=== PATIENT | male | born 1955 | race Caucasian/White ===

== ENCOUNTER → 2020-02-09 11:31 | Outpatient (BNVA) | payer OTHER, SELFPAY | PROVIDERS: PCP Internal Medicine; Visit Provider Internal Medicine | DX: J44.9 Chronic obstructive pulmonary disease, unspecified (principal); D75.1 Secondary polycythemia; F17.210 Nicotine dependence, cigarettes, uncomplicated | CPT/HCPCS: 99212 ==

== ENCOUNTER 2020-02-23 10:18 | Outpatient (REF) | payer OTHER, SELFPAY ==
[2020-02-23 11:26] LABS: MANUAL DIFF FLAG NO
[2020-02-23 11:39] LABS: Basophils Absolute Auto 0.1 X10*3/uL (0.0-0.2); Basophils Percent Auto 0.8 % (0-2); Eosinophils Absolute Auto 0.2 X10*3/uL (0.0-0.4); Eosinophils Percent Auto 2.3 % (0-4); Hematocrit 48.9 % (42-52); Hemoglobin 16.4 g/dl (14.0-18.0); Imm Gran Abs Auto 0.02 X10*3/uL (0.00-0.03); Imm Gran Pct Auto 0.3 % (0.0-0.4); Lymphocytes Absolute Auto 1.9 X10*3/uL (1.2-4.9); Lymphocytes Percent Auto 26.2 % (20-40); Mean Corpuscular HGB Conc 33.5 g/dl (31.0-36.0); Mean Corpuscular Hemoglobin 29.4 pg (27.0-33.0); Mean Corpuscular Volume 87.8 fL (80-98); Mean Platelet Volume 9.3 fL (9.4-12.4); Monocytes Absolute Auto 0.6 X10*3/uL (0.1-1.2); Monocytes Percent Auto 7.9 % (2-11); Neutrophils Absolute Auto 4.5 X10*3/uL (2.0-8.3); Neutrophils Percent Auto 62.5 % (45-73); Platelet Count 270 X10*3/uL (160-400); Red Blood Count 5.57 X10*6/uL (4.60-5.80); Red Cell Distribution Width 13.4 % (11.0-16.0); White Blood Count 7.2 X10*3/uL (4.8-10.8)
[2020-02-23 11:47] LABS: Glucose Urine UA 100 MG/DL (NEG); Leukocyte Esterase Urine NEG (NEG); Nitrite Urine NEG (NEG); PH 5.5 (5.0-8.0); Specific Gravity - Urine >= 1.030 (1.005-1.025); Urine Blood NEG (NEG); Urine Ketones NEG (NEG); Urine Protein NEG (NEG-TRACE)
[2020-02-23 11:54] LABS: Appearance Urine HAZY; Color Urine YELLOW
[2020-02-23 12:04] LABS: Estimated Average Glucose 140 mg/dL; Hemoglobin A1c % 6.5 %
[2020-02-23 12:05] LABS: Alanine Aminotransferase 28 U/L (0-40); Albumin Level 4.2 g/dL (3.5-5.0); Alkaline Phosphatase 63 U/L (39-117); Anion Gap 14 (12-20); Aspartate Amino Transferase 22 U/L (5-37); Bilirubin Total 0.6 mg/dL (0.0-1.0); Blood Urea Nitrogen 12 mg/dL (9-16); Calcium 9.3 mg/dL (8.4-10.2); Carbon Dioxide 27 mmol/L (22-29); Chloride 102 mmol/L (96-108); Cholesterol 223 mg/dL; Estimated Glomerular Filt Rate > 60; Glucose Fasting 154 mg/dL (60-99); HDL Cholesterol 49 mg/dL; LDL Cholesterol Calculated 146 mg/dl; Potassium 4.4 mmol/l (3.3-5.1); Sodium 139 mmol/L (135-145); Triglycerides 141 mg/dL
[2020-02-23 12:11] LABS: Prostate Specific Antigen 2.38 ng/mL (<0.05-4.0)
[2020-02-23 12:31] LABS: Creatinine Urine 257.42 mg/dL; Microalbum/Creatinine Ratio Ur 17.8 ug/mg cr
== END 2020-02-23 10:19 | disposition home or self-care (01) ==
LOC: HO.HMGCLDS 10:18
PROVIDERS: PCP Internal Medicine; Visit Provider Internal Medicine
DX: R73.03 Prediabetes (principal); E78.5 Hyperlipidemia, unspecified; J44.9 Chronic obstructive pulmonary disease, unspecified
CPT/HCPCS: 36415; 80053; 80061; 81003; 82043; 83036; 84153; 85025

== ENCOUNTER 2020-05-20 12:05 | Outpatient (REF) | payer OTHER, SELFPAY ==
[2020-05-20 14:02] LABS: Estimated Average Glucose 143 mg/dL; Hemoglobin A1c % 6.6 %
[2020-05-20 14:23] LABS: Anion Gap 17 (12-20); Blood Urea Nitrogen 13 mg/dL (9-16); Calcium 9.4 mg/dL (8.4-10.2); Carbon Dioxide 25 mmol/L (22-29); Chloride 100 mmol/L (96-108); Estimated Glomerular Filt Rate > 60; Glucose Fasting 177 mg/dL (60-99); Potassium 4.2 mmol/L (3.3-5.1); Sodium 138 mmol/L (135-145)
== END 2020-05-20 12:06 | disposition home or self-care (01) ==
LOC: HO.10HDL 12:05
PROVIDERS: Visit Provider Internal Medicine
DX: E11.9 Type 2 diabetes mellitus without complications (principal); K21.9 Gastro-esophageal reflux disease without esophagitis; E78.00 Pure hypercholesterolemia, unspecified; J44.9 Chronic obstructive pulmonary disease, unspecified; F17.210 Nicotine dependence, cigarettes, uncomplicated
CPT/HCPCS: 36415; 80048; 83036

== ENCOUNTER 2020-05-20 12:28 | Outpatient (REF) | payer OTHER, SELFPAY ==
--- NOTE | ~2020-05-20 | CT_ITS ---
EXAMINATION: CT CHEST SCREENING CLINICAL INFORMATION: Nicotine dependence. COMPARISON: 04/15/2019 and 04/12/2018. TECHNIQUE: Multidetector volumetric CT imaging of the chest is performed without contrast using low dose technique. Additional 2D coronal and sagittal reformatted images and axial 3D maximum intensity projection (MIP) images are generated on the CT workstation. This CT examination was performed using dose optimization techniques as appropriate, variously including the following: *Automated exposure control *Adjustment of mA and/or kV according to patient size (this includes techniques or standardized protocols for targeted exams where dose is matched to indication/reason for exam; i.e. extremities or head) *Use of iterative reconstruction technique DLP: 56 mGy-cm FINDINGS: LUNGS: There are changes of centrilobular emphysema present bilaterally. Central airways are patent. There is some bronchial wall thickening present bilaterally without significant bronchiectasis. No confluent parenchymal disease is identified. There are scattered sub-4 mm densities present. There is a region of tree-in-bud disease within the right lower lobe without definite mucous plugging appreciated. There is mild apical pleural-parenchymal scarring bilaterally. MEDIASTINUM: Visualized thyroid gland appears unremarkable. Heart normal size. Coronary artery calcification present. No pericardial effusion. No thoracic aortic aneurysm. Nonocclusive aortic arch calcified plaque. No mediastinal or hilar lymphadenopathy. PLEURA: There is no pleural effusion. No pleural mass or thickening. AXILLA: No lymphadenopathy. UPPER ABDOMEN: Unremarkable. There is calcification about the right renal hilum but which is most likely vascular in nature and not within the collecting system. No adrenal gland lesion. OSSEOUS STRUCTURES: No destructive bony lesion identified. CT/CT lung screening IMPRESSION: Changes of centrilobular emphysema. Bronchial wall thickening with mild bronchiectasis which may be related to respiratory bronchiolitis. No suspicious lung nodules. Single focus of disease with appearance of tree-in-bud configuration which may be related to mucous plugging/end bronchial disease within the right lower lobe. ASSESSMENT: Lung-RADS category 2: Benign. RECOMMENDATION: Routine annual low-dose CT screening in 12 months.
== END 2020-05-20 12:29 | disposition home or self-care (01) ==
LOC: HO.CT 12:28
PROVIDERS: PCP Internal Medicine; Visit Provider Physician Assistant Medical
DX: Z12.2 Encounter for screening for malignant neoplasm of respiratory organs (principal); F17.210 Nicotine dependence, cigarettes, uncomplicated
CPT/HCPCS: 71271

== ENCOUNTER → 2020-06-08 11:45 | Outpatient (BNVA) | payer OTHER, SELFPAY | PROVIDERS: PCP Internal Medicine; Visit Provider Internal Medicine | DX: J44.9 Chronic obstructive pulmonary disease, unspecified (principal); D75.1 Secondary polycythemia; Z87.891 Personal history of nicotine dependence; Z79.51 Long term (current) use of inhaled steroids | CPT/HCPCS: 99212 ==

== ENCOUNTER 2020-12-07 11:17 | Outpatient (REF) | payer OTHER, SELFPAY ==
[2020-12-07 13:57] LABS: MANUAL DIFF FLAG NO
[2020-12-07 14:11] LABS: Basophils Percent Auto 0.6 % (0-2); Eosinophils Absolute Auto 0.1 X10*3/uL (0.0-0.4); Hematocrit 46.8 % (42-52); Hemoglobin 16.1 g/dl (14.0-18.0); Imm Gran Abs Auto 0.03 X10*3/uL (0.00-0.03); Imm Gran Pct Auto 0.4 % (0.0-0.4); Lymphocytes Absolute Auto 1.6 X10*3/uL (1.2-4.9); Lymphocytes Percent Auto 22.6 % (20-40); Mean Corpuscular HGB Conc 34.4 g/dl (31.0-36.0); Mean Corpuscular Hemoglobin 30.1 pg (27.0-33.0); Mean Corpuscular Volume 87.6 fL (80-98); Mean Platelet Volume 9.7 fL (9.4-12.4); Monocytes Absolute Auto 0.5 X10*3/uL (0.1-1.2); Monocytes Percent Auto 6.9 % (2-11); Neutrophils Absolute Auto 4.6 X10*3/uL (2.0-8.3); Neutrophils Percent Auto 67.5 % (45-73); Platelet Count 242 X10*3/uL (160-400); Red Blood Count 5.34 X10*6/uL (4.60-5.80); Red Cell Distribution Width 13.5 % (11.0-16.0); White Blood Count 6.9 X10*3/uL (4.8-10.8)
[2020-12-07 14:13] LABS: Estimated Average Glucose 143 mg/dL; Hemoglobin A1c % 6.6 %
[2020-12-07 14:18] LABS: Alanine Aminotransferase 31 U/L (0-40); Albumin Level 4.1 g/dL (3.5-5.0); Alkaline Phosphatase 66 U/L (39-117); Anion Gap 14 (12-20); Aspartate Amino Transferase 27 U/L (5-37); Bilirubin Total 0.8 mg/dL (0.0-1.0); Blood Urea Nitrogen 13 mg/dL (9-16); Calcium 9.1 mg/dL (8.4-10.2); Carbon Dioxide 25 mmol/L (22-29); Chloride 103 mmol/L (96-108); Cholesterol 218 mg/dL; Estimated Glomerular Filt Rate > 60; Glucose Fasting 172 mg/dL (60-99); HDL Cholesterol 43 mg/dL; LDL Cholesterol Calculated 137 mg/dl; Potassium 3.7 mmol/L (3.3-5.1); Sodium 138 mmol/L (135-145); Total Protein 6.6 g/dL (6.5-8.0); Triglycerides 192 mg/dL
[2020-12-07 14:34] LABS: Creatinine Urine 249.29 mg/dL; Microalbum/Creatinine Ratio Ur 10.4 ug/mg cr
== END 2020-12-07 11:18 | disposition home or self-care (01) ==
LOC: HO.10HDL 11:17
PROVIDERS: Visit Provider Internal Medicine
DX: J44.9 Chronic obstructive pulmonary disease, unspecified (principal); D75.1 Secondary polycythemia; F17.210 Nicotine dependence, cigarettes, uncomplicated; Z79.899 Other long term (current) drug therapy; E11.9 Type 2 diabetes mellitus without complications; K21.9 Gastro-esophageal reflux disease without esophagitis; Z86.73 Personal history of transient ischemic attack (TIA), and cerebral infarction without residual deficits
CPT/HCPCS: 36415; 80053; 80061; 82043; 83036; 85025; 99212

== ENCOUNTER 2021-02-11 14:30 | Outpatient (REF) | payer OTHER, SELFPAY ==
[2021-02-11 16:40] LABS: Anion Gap 14 (12-20); Blood Urea Nitrogen 11 mg/dL (9-16); Calcium 9.2 mg/dL (8.4-10.2); Carbon Dioxide 27 mmol/L (22-29); Chloride 100 mmol/L (96-108); Estimated Glomerular Filt Rate > 60; Glucose Random 140 mg/dL (60-115); Potassium 4.2 mmol/L (3.3-5.1); Sodium 137 mmol/L (135-145)
[2021-02-11 16:44] LABS: Estimated Average Glucose 143 mg/dL; Hemoglobin A1c % 6.6 %
== END 2021-02-11 14:31 | disposition home or self-care (01) ==
LOC: HO.HMGCLDS 14:30
PROVIDERS: Visit Provider Internal Medicine
DX: I10 Essential (primary) hypertension (principal); E11.9 Type 2 diabetes mellitus without complications
CPT/HCPCS: 36415; 80048; 83036

== ENCOUNTER → 2021-06-07 11:07 | Outpatient (BNVA) | payer OTHER, SELFPAY | PROVIDERS: PCP Internal Medicine; Visit Provider Internal Medicine | DX: J44.9 Chronic obstructive pulmonary disease, unspecified (principal); D75.1 Secondary polycythemia; F17.210 Nicotine dependence, cigarettes, uncomplicated | CPT/HCPCS: 99212 ==

== ENCOUNTER 2021-12-21 15:23 | Outpatient (REF) | payer OTHER, SELFPAY ==
[2021-12-21 16:19] LABS: Creatinine Urine 272.01 mg/dL; Microalbum/Creatinine Ratio Ur 12.4 ug/mg cr
[2021-12-21 16:21] LABS: Estimated Average Glucose 154 mg/dL
[2021-12-21 16:24] LABS: Alanine Aminotransferase 42 U/L (0-40); Albumin Level 4.5 g/dL (3.5-5.0); Alkaline Phosphatase 67 U/L (39-117); Anion Gap 17 (12-20); Aspartate Amino Transferase 26 U/L (5-37); Bilirubin Total 0.6 mg/dL (0.0-1.0); Blood Urea Nitrogen 15 mg/dL (9-16); Calcium 9.5 mg/dL (8.4-10.2); Carbon Dioxide 25 mmol/L (22-29); Chloride 104 mmol/L (96-108); Estimated Glomerular Filt Rate > 60; Glucose Random 149 mg/dL (60-115); Potassium 3.5 mmol/L (3.3-5.1); Sodium 142 mmol/L (135-145); Total Protein 7.3 g/dL (6.5-8.0)
[2021-12-21 16:44] LABS: Free T4 (Free Thyroxine) 1.28 ng/dL (0.71-1.85); Thyroid Stimulating Hormone 0.95 uIU/mL (0.32-4.0)
[2021-12-21 16:45] LABS: Vitamin B12 362 pg/mL (200-900)
== END 2021-12-21 15:24 | disposition home or self-care (01) ==
LOC: HO.LAB 15:23
PROVIDERS: PCP Internal Medicine; Visit Provider Internal Medicine
DX: R73.03 Prediabetes (principal); J44.9 Chronic obstructive pulmonary disease, unspecified; K21.9 Gastro-esophageal reflux disease without esophagitis; R53.83 Other fatigue; D75.1 Secondary polycythemia; F17.200 Nicotine dependence, unspecified, uncomplicated; Z71.6 Tobacco abuse counseling
CPT/HCPCS: 36415; 80053; 82043; 82607; 83036; 84439; 84443; 99212

== ENCOUNTER 2022-03-06 15:05 | Outpatient (REF) | payer OTHER, SELFPAY ==
[2022-03-06 16:48] LABS: Influenza A PCR NEGATIVE (Negative); Influenza B PCR NEGATIVE (Negative); Resp Syncy Virus RNA Qual PCR NEGATIVE (Negative); SARS COV2 PCR INHOUSE NEGATIVE (Negative)
== END 2022-03-06 15:06 | disposition home or self-care (01) ==
LOC: HO.LNP 15:05
PROVIDERS: Visit Provider Internal Medicine
DX: Z12.5 Encounter for screening for malignant neoplasm of prostate (principal); R05.9 Cough, unspecified; R51.9 Headache, unspecified
CPT/HCPCS: 0241U

== ENCOUNTER 2022-03-07 16:20 | Outpatient (REF) | payer OTHER, SELFPAY ==
--- NOTE | ~2022-03-07 | XR_ITS ---
EXAMINATION: XR CHEST CLINICAL INFORMATION: Chronic obstructive pulmonary disease. COMPARISON: Chest CT from 05/20/2020 TECHNIQUE: 2 views of the chest were obtained. FINDINGS: Lungs are mildly hyperexpanded and bronchial pillai chronically thickened in this patient with chronic obstructive pulmonary disease. No acute findings compared to 05/20/2020. No evidence of airspace disease, mass or pleural effusion. Cardiac silhouette has normal size and contour. The visualized bones are intact. XR/XR chest 2V IMPRESSION: Chronic lung disease. No new cardiopulmonary abnormalities compared to 05/20/2020.
== END 2022-03-07 16:21 | disposition home or self-care (01) ==
LOC: HO.XRAY 16:20
PROVIDERS: PCP Internal Medicine; Visit Provider Internal Medicine
DX: J44.9 Chronic obstructive pulmonary disease, unspecified (principal); R05.9 Cough, unspecified
CPT/HCPCS: 71046

== ENCOUNTER 2023-01-11 11:26 | Outpatient (REF) | payer MEDICARE, MEDICAID, SELFPAY ==
[2023-01-11 13:22] LABS: Appearance Urine Cloudy; Color Urine Dark Yellow; Glucose Urine UA 500 mg/dL (Negative); Leukocyte Esterase Urine Small (1+) (Negative); Nitrite Urine Negative (Negative); PH 5.5 (5.0-9.0); UMIC TRIGGER UA YES; Urine Blood Negative (Negative); Urine Ketones Trace mg/dL (Negative); Urine Protein 30 (1+) mg/dL (Neg-Trace)
[2023-01-11 13:23] LABS: MANUAL DIFF FLAG NO
[2023-01-11 13:32] LABS: Bacteria Urine None Seen (None Seen); Hyaline Casts Urine >20 /LPF (0-2)
[2023-01-11 13:34] LABS: Basophils Absolute Auto 0.1 X10*3/uL (0.0-0.2); Eosinophils Absolute Auto 0.1 X10*3/uL (0.0-0.4); Eosinophils Percent Auto 1.6 % (0-4); Hematocrit 49.7 % (42.0-52.0); Hemoglobin 16.8 g/dl (14.0-18.0); Imm Gran Abs Auto 0.02 X10*3/uL (0.00-0.03); Imm Gran Pct Auto 0.3 % (0.0-0.4); Lymphocytes Absolute Auto 1.7 X10*3/uL (1.2-4.9); Lymphocytes Percent Auto 20.9 % (20-40); Mean Corpuscular HGB Conc 33.8 g/dl (31.0-36.0); Mean Corpuscular Hemoglobin 29.6 pg (27.0-33.0); Mean Corpuscular Volume 87.5 fL (80.0-98.0); Mean Platelet Volume 9.8 fL (9.4-12.4); Monocytes Absolute Auto 0.6 X10*3/uL (0.1-1.2); Neutrophils Absolute Auto 5.5 x10*3/uL (2.0-8.3); Neutrophils Percent Auto 69.2 % (45-73); Platelet Count 317 X10*3/uL (160-400); Red Blood Count 5.68 X10*6/uL (4.60-5.80); Red Cell Distribution Width 13.2 % (11.0-16.0)
[2023-01-11 14:11] LABS: Prostate Specific Antigen Scr 4.11 ng/mL (<0.05-4.0)
[2023-01-11 14:26] LABS: Alanine Aminotransferase 36 U/L (0-40); Albumin Level 4.3 g/dL (3.5-5.0); Alkaline Phosphatase 66 U/L (39-117); Anion Gap 14 (12-20); Aspartate Amino Transferase 29 U/L (5-37); Bilirubin Total 0.6 mg/dL (0.0-1.0); Blood Urea Nitrogen 15 mg/dL (9-16); Calcium 10.1 mg/dL (8.4-10.2); Carbon Dioxide 25 mmol/L (22-29); Chloride 100 mmol/L (96-108); Cholesterol 216 mg/dL (<200); Estimated Glomerular Filt Rate > 60; Glucose Fasting 193 mg/dL (60-99); HDL Cholesterol 43 mg/dL (>40); LDL Cholesterol Calculated 142 mg/dL (<100); Potassium 4.3 mmol/L (3.3-5.1); Sodium 135 mmol/L (135-145); Total Protein 7.6 g/dL (6.5-8.0); Triglycerides 159 mg/dL (<150)
[2023-01-11 14:34] LABS: Estimated Average Glucose 163 mg/dL; Hemoglobin A1c % 7.3 % (<6.0)
[2023-01-11 14:58] LABS: Creatinine Urine 320.94 mg/dL; Microalbum/Creatinine Ratio Ur 33.9 ug/mg cr (<30)
== END 2023-01-11 11:27 | disposition home or self-care (01) ==
LOC: HO.HMGCLDS 11:26
PROVIDERS: PCP Internal Medicine; Visit Provider Internal Medicine
DX: E11.9 Type 2 diabetes mellitus without complications (principal); K21.9 Gastro-esophageal reflux disease without esophagitis; J44.9 Chronic obstructive pulmonary disease, unspecified; E78.00 Pure hypercholesterolemia, unspecified; Z86.73 Personal history of transient ischemic attack (TIA), and cerebral infarction without residual deficits; Z12.5 Encounter for screening for malignant neoplasm of prostate
CPT/HCPCS: 36415; 80053; 80061; 81001; 82043; 82570; 83036; 84153; 85025

== ENCOUNTER 2023-06-05 12:18 | Outpatient (REF) | payer MEDICARE, MEDICAID, SELFPAY ==
[2023-06-05 14:06] LABS: Estimated Average Glucose 169 mg/dL; Hemoglobin A1c % 7.5 % (<6.0)
[2023-06-05 14:17] LABS: Anion Gap 16 (12-20); Blood Urea Nitrogen 18 mg/dL (9-16); Calcium 9.4 mg/dL (8.4-10.2); Carbon Dioxide 26 mmol/L (22-29); Chloride 101 mmol/L (96-108); Estimated Glomerular Filt Rate > 60; Glucose Random 241 mg/dL (60-115); Potassium 3.5 mmol/L (3.3-5.1); Sodium 139 mmol/L (135-145)
[2023-06-05 17:32] LABS: Creatinine Urine 148.72 mg/dL
== END 2023-06-05 12:19 | disposition home or self-care (01) ==
LOC: HO.HMGCLDS 12:18
PROVIDERS: PCP Internal Medicine; Visit Provider Internal Medicine
DX: E11.9 Type 2 diabetes mellitus without complications (principal); K21.9 Gastro-esophageal reflux disease without esophagitis; Z86.73 Personal history of transient ischemic attack (TIA), and cerebral infarction without residual deficits
CPT/HCPCS: 36415; 80048; 82043; 82570; 83036

== ENCOUNTER 2023-07-20 12:14 | Outpatient (REF) | payer MEDICARE, MEDICAID, SELFPAY ==
--- NOTE | ~2023-07-20 | XR_ITS ---
EXAMINATION: XR CHEST CLINICAL INFORMATION: Cough COMPARISON: 03/07/2022 TECHNIQUE: 2 views of the chest were obtained. FINDINGS: The lungs are hyperinflated and the bronchial pillai are chronically thickened. No focal consolidation, interstitial pulmonary edema or pneumothorax. No pleural effusion. No significant abnormality is noted involving the heart, mediastinum, bony thorax or soft tissues. XR/XR chest 2V IMPRESSION: No acute cardiopulmonary disease.
== END 2023-07-20 12:15 | disposition home or self-care (01) ==
LOC: HO.XRAY 12:14
PROVIDERS: PCP Internal Medicine; Visit Provider Internal Medicine
DX: R05.9 Cough, unspecified (principal); J44.9 Chronic obstructive pulmonary disease, unspecified
CPT/HCPCS: 71046

== ENCOUNTER 2023-11-05 13:40 | Outpatient (REF) | payer MEDICARE, SELFPAY ==
[2023-11-05 16:17] LABS: MANUAL DIFF FLAG NO
[2023-11-05 16:25] LABS: Basophils Absolute Auto 0.1 X10*3/uL (0.0-0.2); Basophils Percent Auto 0.7 % (0-2); Eosinophils Absolute Auto 0.1 X10*3/uL (0.0-0.4); Eosinophils Percent Auto 1.2 % (0-4); Hematocrit 50.4 % (42.0-52.0); Hemoglobin 17.1 g/dl (14.0-18.0); Imm Gran Abs Auto 0.04 X10*3/uL (0.00-0.03); Imm Gran Pct Auto 0.4 % (0.0-0.4); Lymphocytes Absolute Auto 1.9 X10*3/uL (1.2-4.9); Mean Corpuscular HGB Conc 33.9 g/dl (31.0-36.0); Mean Corpuscular Hemoglobin 29.8 pg (27.0-33.0); Mean Platelet Volume 9.7 fL (9.4-12.4); Monocytes Absolute Auto 0.8 X10*3/uL (0.1-1.2); Monocytes Percent Auto 7.6 % (2-11); Neutrophils Absolute Auto 7.6 x10*3/uL (2.0-8.3); Neutrophils Percent Auto 72.1 % (45-73); Platelet Count 347 X10*3/uL (160-400); Red Blood Count 5.73 X10*6/uL (4.60-5.80); White Blood Count 10.6 X10*3/uL (4.8-10.8)
[2023-11-05 16:56] LABS: Anion Gap 17 (12-20); Blood Urea Nitrogen 18 mg/dL (9-16); Calcium 10.4 mg/dL (8.4-10.2); Carbon Dioxide 26 mmol/L (22-29); Chloride 101 mmol/L (96-108); Estimated Glomerular Filt Rate > 60; Glucose Random 158 mg/dL (60-115); Potassium 3.8 mmol/L (3.3-5.1); Sodium 140 mmol/L (135-145)
[2023-11-05 16:59] LABS: Estimated Average Glucose 137 mg/dL; Hemoglobin A1c % 6.4 % (<6.0)
[2023-11-05 17:20] LABS: PSA,Total (Free>4and<10) 4.79 ng/mL (0.00-4.00); Prostate Specific Antigen 5.03 ng/mL (<0.05-4.0)
[2023-11-06 10:58] LABS: Free Prostate Spec Ag 0.4 ng/mL; Percent Free Prostate Spec Ag 8 % (calc) (>25)
== END 2023-11-05 13:41 | disposition home or self-care (01) ==
LOC: HO.HMGCLDS 13:40
PROVIDERS: PCP Internal Medicine; Visit Provider Internal Medicine
DX: E11.9 Type 2 diabetes mellitus without complications (principal); K21.9 Gastro-esophageal reflux disease without esophagitis; Z12.5 Encounter for screening for malignant neoplasm of prostate
CPT/HCPCS: 36415; 80048; 83036; 84153; 84154; 85025

== ENCOUNTER 2024-02-29 11:17 | Outpatient (AMB) | payer MEDICARE, SELFPAY ==
--- NOTE | 2024-02-29 11:22 | A.OFFVIS_ITS ---
Intake Visit Reasons: elevated PSA Intake Note: Patient is present for ELEVATED PSA Urology Medication:NONE Antibiotic Allergy:PENICILLIN.ERYTHROMYCIN Blood Thinner:ASPIRIN [employer] Airspace Control Officer Required: No Allergies erythromycin base [ERYTHROMYCIN BASE] Allergy (Severe, Verified 02/29/24 11:23) SEVERE N/V penicillin V Allergy (Unknown, Verified 02/29/24 11:23) Unknown HPI Comments Details: Indra is a pleasant male. He is a patient of Dr. Kim. He seen for the following urologic conditions - elevated PSA Elevated PSA with bladder outlet obstruction PSA 5.0 8%Free PCP T 30% chance high-grade prostate cancer Significant medical comorbidities Initiate finasteride, 4 month follow-up lab work, bladder ultrasound [facility] Medical History COPD (chronic obstructive pulmonary disease) Ex-smoker Polycythemia Smoker Social History Cigarette Packs Per Day: 0.5 Cigarettes Per Day: 6 Review of Systems Const Denies chills and Denies fever(s) Card Reports no additional complaints and Denies syncope Resp Denies cough GI Denies abdominal pain and Denies heartburn Reports as per HPI and Denies change in libido Neuro Denies syncope Psych Denies change in libido Endo Denies change in libido Physical Exam Const General: cooperative, healthy appearing, comfortable and no acute distress Orientation/consciousness: patient oriented x3 HEENT Face and sinus: Yes normal facial exam Mouth: moist mucous membranes Neck Neck: Yes normal visual inspection, Yes full ROM and Yes trachea midline Chest Chest palpation & inspection: normal inspection of the chest Resp Effort & Inspection: normal respiratory effort, able to speak in complete sentences and no respiratory distress GI Inspection: Yes normal to inspection Back/Spine/Pelvis Cervical Spine: normal cervical lordosis Thoracic/Lumbar Spine: thoracic and lumbar spine normal to inspection Skin General skin exam: no rashes or lesions noted Neuro General: patient oriented x3, gait normal, tone normal and moves all extremities Extrem General: Yes normal to inspection and Yes capillary refill normal Assessment & Plan Assessment & Plan (1) Bladder outlet obstruction: Code(s): N32.0 - Bladder-neck obstruction Category: Medical (2) Elevated PSA: Code(s): R97.20 - Elevated prostate specific antigen [PSA] Category: Medical Plan Bladder ultrasound Finasteride Repeat PSA Orders: Orders PSA,Total (Free>4and<10) 4 Months N32.0 - Bladder-neck obstruction US bladder Today N32.0 - Bladder-neck obstruction, R39.12 - Poor urinary stream Medications: New finasteride 5 mg PO DAILY 90 tabs 1RF 90 days N13.8 - Other obstructive and reflux uropathy, N32.0 - Bladder-neck obstruction, N40.1 - Benign prostatic hyperplasia with lower urinary tract symptoms, R33.9 - Retention of urine, unspecified Patient Instructions: Imaging studies, laboratory and physical exam results were discussed and reviewed in detail. No major barriers to patient understanding were identified. An opportunity to ask questions regarding the treatment plan was provided. All questions were answered. The patient expressed understanding and agreement with the above treatment plan. The patient is aware they should contact our office by phone for worsening of their current condition or the appearance of new urologic symptoms. Compliance is encouraged with any medications and followup testing that is ordered. It is a privilege to participate in the urologic care of your patient. If you have any questions or concerns regarding treatment for the above conditions, or other urologic issues, please do not hesitate to contact me. The office telephone contact is [phone]. This note is constructed using voice recognition software. While every effort has been made to ensure accuracy pediatric nephrologist errors may have been included. Yours sincerely, Dr Alex Ordonez MD, [facility] - Urology Providers of Expert, Compassionate Care for the Genitourinary System Coding Level of Care Code New Pt Level 4 (35996) Diagnoses Bladder outlet obstruction N32.0 Elevated PSA R97.20
== END 2024-02-29 11:52 | disposition home or self-care (01) ==
PROVIDERS: PCP Internal Medicine; Visit Provider Urology
DX: N32.0 Bladder-neck obstruction (principal); R97.20 Elevated prostate specific antigen [PSA]
CPT/HCPCS: 99204

== ENCOUNTER → 2024-02-29 11:17 | Outpatient (BNVA) | payer MEDICARE, SELFPAY | PROVIDERS: PCP Internal Medicine; Visit Provider Urology | DX: N32.0 Bladder-neck obstruction (principal); R97.20 Elevated prostate specific antigen [PSA] | CPT/HCPCS: 99202 ==

== ENCOUNTER 2024-08-21 14:02 | Outpatient (REF) | payer MEDICARE, SELFPAY ==
--- NOTE | ~2024-08-21 | US_ITS ---
EXAMINATION: US BLADDER HISTORY: R39.12 - Poor urinary stream COMPARISON: There are no prior studies available for comparison. FINDINGS: Sonographic examination of the urinary bladder was performed before and after voiding. Before voiding, the urinary bladder measured 7.2 x 6.2 x 6.9, for an estimated volume of 161 mL. After voiding, the urinary bladder measured 4.6 x 3.4 x 4.0, for an estimated volume of 32.5 mL. No intrinsic bladder abnormality is identified. Bilateral ureteral jets are identified. The prostate measures 3.3 x 4.1 x 2.8 cm, for an estimated volume of 19.7 mL. US/US bladder IMPRESSION: Post void bladder residual of 32.5 mL. No intrinsic bladder abnormality. Prostate volume of 19.7 mL. Electronically signed by: Eric Altamirano MD 08/22/2024 07:03 AM EDT
--- OUTSIDE RECORDS SUMMARY | 2024-08-21 14:13 | XMS_ITS | Patient Health Record ---
Author Organization [facility] Address [address] [place] [address] Care Team Providers Care Electrical & Instrumentation Supervisor Name Role Phone Tk Kim MD Primary Care Provider Marcel Vazquez Jr Unavailable Allergies Allergen (clinical drug ingredient) Drug/Non Drug Allergy documented on EMR Reaction Allergy Type Onset Date Status penicillin G Penicillin G Sodium Unknown Drug Allergy Active erythromycin Erythromycin Unknown Drug Allergy A ctive Reason For Referral No Information Medications Medication SIG (Take, Route, Frequency, Duration) Notes Start Date End Date Status Clopidogrel Bisulfate 75 MG 1 tablet Ora lly Once a day for 30 day(s) Active Omeprazole 20 MG 1 capsule Orally Onc e a day for 30 day(s) Active Simvastatin 40 MG 1 tablet in the even ing Orally Once a day for 30 day(s) Active Aspirin Adult Low Dose 81 MG 1 tablet Orally Once a day for 30 day(s) Active Ibuprofen 200 MG 1 tablet with food o r milk as needed Orally prn Active Latanoprost 0.005 % 1 drop into affected eye in the evening Ophthalmic Once a day Active Ventolin HFA 108 (90 Base) MCG/ACT 2 puffs as needed Inhalation every 6 hrs Active Flovent HFA 220 MCG/ACT 1 puff Inhalatio n Twice a day Active MiraLax (colon prep) 8.3 ounce ((238) grams mixed with Gatorade or Crystal Light orally begin at 5:00 p.m. the day before the procedure for 1 day 01/01/2019 Active ZyrTEC Allergy 10 MG 1 tablet Orally Onc e a day for 30 day(s) Active Carisoprodol 350 MG 1 tablet as needed O rally Four times a day Active Immunizations Vaccine Route Administration Date Status Comme nts Influenza Unknown 01/01/2019 Refused Social History Tobacco Use: Social History Observation Description Date Details (start date - stop date) Current Smoker NA - NA Tobacco Use/Smoking Question Answer Notes Patient is a current smoker How often do you smoke cigarettes? every day How many cigarettes a day do you smoke? 6-10 How soon after you wake up do you smoke your fir st cigarette? 6-30 minutes Are you interested in quitting? Ready to quit Alcohol Screen Question Answer Notes Did you have a drink contain ing alcohol in the past year? Yes How often did you have a dri nk containing alcohol in the past year? 2 to 4 times a month (2 points) How many drinks did you have on a typical day when you were drinking in the past year? 3 or 4 drinks (1 point) How often did you have 6 or more drinks on one occasion in the past year? Less than monthly (1 point) Points 4 Interpretation Positive Problems Problem Type SNOMED Code ICD Code Onset Dates Problem Status W/U Status Risk Notes Problem [id number] Colon cancer screening (Z12.11) Active confirmed Problem 734345126 GERD without esophagitis (K21.9) Active confirmed Plan Of Treatment Future Test Test Name Order Date UPPER GI ENDOSCOPY 01/01/2019 COLONOSCOPY 01/01/2019 Insurance Providers Payer Name Payer Address Payer Phone Subscriber Number Group Number Insured Name Patient Relationship to Insured Coverage Start Date Coverage End Date [facility] [address] [place] [phone] [id number] DIO CRANDALL Self - patient is the insured Medical (General) History Medical History History ICD Code TIA in 2006 COPD BRONCHITIS seasonal allergies gastroesophageal reflux disease glaucoma elevated cholesterol Surgical History Surgery Date(Month/Year) appendectomy 1960 hemorrhoidectomy 1983? COMPOUND FRACTURE TIB/FIB 1976
[2024-08-21 15:45] LABS: PSA,Total (Free>4and<10) 5.47 ng/mL (0.00-4.00)
[2024-08-22 13:29] LABS: Free Prostate Spec Ag 0.3 ng/mL; Percent Free Prostate Spec Ag 6 % (calc) (>25); Prostate Specific Ag Total 4.8 ng/mL (< OR = 4.0)
== END 2024-08-21 14:03 | disposition home or self-care (01) ==
LOC: HO.US 14:02
PROVIDERS: Visit Provider Urology
DX: N32.0 Bladder-neck obstruction (principal); R39.12 Poor urinary stream; Z12.5 Encounter for screening for malignant neoplasm of prostate
CPT/HCPCS: 36415; 76857; 84153; 84154

== ENCOUNTER → 2024-08-21 14:32 | Outpatient (BNV) | payer MEDICARE, SELFPAY | PROVIDERS: Visit Provider Radiology Diagnostic Radiology | DX: R39.12 Poor urinary stream (principal) | CPT/HCPCS: 76857 ==

== ENCOUNTER 2024-09-03 11:01 | Outpatient (AMB) | payer MEDICARE, SELFPAY ==
--- NOTE | 2024-09-03 11:05 | A.OFFVIS_ITS ---
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 He is a patient of Dr. Kim. He seen for the following urologic conditions - elevated PSA Four month follow-up Bladder ultrasound 20 g gland PSA marginal drop to 4.8 Recommend prostate biopsy Elevated PSA with bladder outlet obstruction PSA - 11/16 PSA 5.0 8%Free, 08/17 4.8 6% PCP T 30% chance high-grade prostate cancer Significant medical comorbidities PFSH Medical History COPD (chronic obstructive pulmonary disease) Ex-smoker Polycythemia Smoker Social History Cigarette Packs Per Day: 0.5 Cigarettes Per Day: 6 Review of Systems Const Denies chills and Denies fever(s) Card Reports no additional complaints and Denies syncope Resp Denies cough GI Denies abdominal pain and Denies heartburn Reports as per HPI and Denies change in libido Neuro Denies syncope Psych Denies change in libido Endo Denies change in libido Physical Exam Const General: cooperative, healthy appearing, comfortable and no acute distress Orientation/consciousness: patient oriented x3 HEENT Face and sinus: Yes normal facial exam Mouth: moist mucous membranes Neck Neck: Yes normal visual inspection, Yes full ROM and Yes trachea midline Chest Chest palpation & inspection: normal inspection of the chest Resp Effort & Inspection: normal respiratory effort, able to speak in complete sentences and no respiratory distress GI Inspection: Yes normal to inspection Back/Spine/Pelvis Cervical Spine: normal cervical lordosis Thoracic/Lumbar Spine: thoracic and lumbar spine normal to inspection Skin General skin exam: no rashes or lesions noted Neuro General: patient oriented x3, gait normal, tone normal and moves all extremities Extrem General: Yes normal to inspection and Yes capillary refill normal Assessment & Plan Assessment & Plan (1) Elevated PSA: Code(s): R97.20 - Elevated prostate specific antigen [PSA] Category: Medical Plan Risks and benefits regarding trans rectal ultrasound with prostate biopsy were discussed. Options of continued surveillance, no treatment and biopsy were offered. The risks include but are not limited to, urinary tract infection, sepsis, difficulty urinating, bleeding into the rectum or bladder that requires intervention and transfusion,and failure to diagnose prostate cancer. The patient understands the options and the risks involved. They wish to proceed. Printed information was provided to ensure he remains off anticoagulation for the appropriate length of time. He may require cardiology or PCP clearance. An antibiotic will be administered prior to, and following the procedure Medications: New levofloxacin take 1 tablet day before procedure, 1 tablet day of procedure and 1 tablet day after procedure 500 mg PO DAILY 3 days 3 tabs 0RF R97.20 - Elevated prostate specific antigen [PSA] Patient Instructions: This note is constructed using voice recognition software. While every effort has been made to ensure accuracy production specialist errors may have been included. Imaging studies, laboratory and physical exam results were discussed and reviewed in detail. No major barriers to patient understanding were identified. An opportunity to ask questions regarding the treatment plan was provided. All questions were answered. The patient expressed understanding and agreement with the above treatment plan. The patient is aware they should contact our office by phone for worsening of their current condition or the appearance of new urologic symptoms. Compliance is encouraged with any medications and followup testing that is ordered. It is a privilege to participate in the urologic care of your patient. If you have any questions or concerns regarding treatment for the above conditions, or other urologic issues, please do not hesitate to contact me. The office telephone contact is [phone]. Sincerely, Dr Alex Ordonez MD, [facility] - Urology Compassionate Specialist Care for the Genitourinary System Coding Level of Care Code Est Pt Level 4 (77111) Diagnoses Elevated PSA R97.20
--- OUTSIDE RECORDS SUMMARY | 2024-09-03 12:36 | XMS_ITS | Patient Health Record ---
Author Organization [facility] Address [address] [place] [address] Care Team Providers Care Corrugator Operator Name Role Phone Tk Kim MD Primary Care Provider Marcel Vazquez Jr Unavailable [phone] Allergies Allergen (clinical drug ingredient) Drug/Non Drug [...] Problem Status W/U Status Risk Notes Problem [id number] Colon cancer screening (Z12.11) Active confirmed Problem [id number] GERD without esophagitis (K21.9) Active confirmed Plan Of Treatment Future Test Test Name Order Date UPPER GI ENDOSCOPY 01/01/2019 COLONOSCOPY 01/01/2019 Insurance Providers Payer Name Payer Address Payer Phone Subscriber Number Group Number Insured Name Patient Relationship to Insured Coverage Start Date Coverage End Date [facility] [address] [place] [phone] [id number] DIO CRANDALL Self - patient is the insured Medical (General) History Medical History History ICD Code TIA in 2006 COPD BRONCHITIS seasonal allergies gastroesophageal reflux disease glaucoma elevated cholesterol Surgical History Surgery Date(Month/Year) appendectomy 1960 hemorrhoidectomy 1983? COMPOUND FRACTURE TIB/FIB 1976
== END 2024-09-03 11:20 | disposition home or self-care (01) ==
LOC: HO.HUSH 11:02
PROVIDERS: PCP Internal Medicine; Visit Provider Urology
DX: R97.20 Elevated prostate specific antigen [PSA] (principal)
CPT/HCPCS: 99214

== ENCOUNTER → 2024-09-03 11:01 | Outpatient (BNVA) | payer MEDICARE, SELFPAY | PROVIDERS: PCP Internal Medicine; Visit Provider Urology | DX: R97.20 Elevated prostate specific antigen [PSA] (principal) | CPT/HCPCS: 99212 ==

== ENCOUNTER 2024-09-17 11:06 | Outpatient (AMB) | payer MEDICARE, SELFPAY ==
--- NOTE | 2024-09-17 11:09 | MHC.PC.OV ---
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: No Accompanied by: Self / Same As Patient Allergies erythromycin base (ERYTHROMYCIN BASE) Allergy (Severe, Verified 09/17/24 12:40) SEVERE N/V penicillin V Allergy (Unknown, Verified 09/17/24 12:40) Unknown Medication List - Last Reconciled 09/17/24 by Charles Bernabe MD aspirin 81 mg PO DAILY cetirizine (Zyrtec) 10 mg PO DAILY clopidogrel 75 mg PO DAILY fluticasone propion-salmeterol 250-50 mcg/dose (Advair Diskus) 1 inh inhalation BID 30 days metformin ER 500 mg PO BID omeprazole 20 mg PO DAILY ProAir HFA 90 mcg/actuation (albuterol sulfate) 2 puffs inhalation Q4-6H PRN NS simvastatin 40 mg PO DAILY Tobacco use date assessed: 09/17/24 Fall risk assessment: No Falls in past year Last assessed Fall Risk: 09/17/24 Dental Screening Dental Screen Date: 09/17/24 Did you have a dental visit in the last 12 months?: No Did you have a dental problem in the last 6 months where you did not have access to dental care?: No PFSH Medical History Diabetes mellitus Ex-smoker Polycythemia COPD (chronic obstructive pulmonary disease) Smoker Surgical History History of colonoscopy (~03/12/19) Family History Mother No problems noted. Father No problems noted. Social History Housing: Other Patient Tobacco Use Status: Current everyday Tobacco user Cigarette Packs Per Day: 0.5 Cigarettes Per Day: 6 e-Cigarette/Vaping Use: Currently Using service: No Current occupational status: retired Cognitive needs: No Hearing needs: No Vision needs: Yes (rx glasses) Questionnaire PHQ-9 Over the last 2 weeks, how often have you been bothered by any of the following problems? 1. Little interest or pleasure in doing things: not at all 2. Feeling down, depressed, or hopeless: several days (some sadness, his passed recently ) 3. Trouble falling or staying asleep, or sleeping too much: not at all 4. Feeling tired or having little energy: not at all 5. Poor appetite or overeating: not at all 6. Feeling bad about yourself - or that you are a failure or have let yourself or your family down: not at all 7. Trouble concentrating on things, such as reading the newspaper or watching television: not at all 8. Moving or speaking so slowly that other people could have noticed. Or the opposite - being so fidgety or restless that you have been moving around a lot more than usual: not at all 9. Thoughts that you would be better off or of hurting yourself in some way: not at all Total score: 1 Depression Screening Interpretation: Negative Depression Screening Done: Yes Source: Developed by Drs. Eric Gaytan, Petra Maza, Skyler Marrero and colleagues, with an educational belinda from [employer]. Thrive Questionnaire Date Thrive assessed: 09/17/24 I am a: Patient Within the past 12 months, did the food you bought not last and you didn't have the money to get more?: Never true Within the past 12 months, did you worry whether your food would run out before you got money to buy more?: Never true Do you have trouble paying for medicines?: No Do you have trouble getting transportation to medical appointments?: No Do you have trouble paying your heating and electricity bill?: No Do you have trouble taking care of your child, family member or friend?: No Do you have trouble with day-to-day activities such as bathing, preparing meals, shopping, managing finances, etc.?: No Are you currently unemployed and looking for a job?: No Are you interested in more education?: No Currently or been in a relationship where the following occur: No concerns reported THRIVE Score: 0 AUDIT C Alcohol Use Questionnaire (AUDIT-C) 1. How often do you have a drink containing alcohol?: Monthly or less 2. How many drinks containing alcohol do you have on a typical day when you are drinking?: 1 or 2 3. How often do you have six or more drinks on one occasion?: Less than monthly Total Score: 2 BENNY-7 AMB Questionnaire BENNY-7 Date BENNY - 7 assessed: 09/17/24 Feeling nervous, anxious, or on edge: 1 = Several days Not being able to stop or control worryin = Not at all Worrying too much about different things: 0 = Not at all Trouble relaxin = Not at all Being so restless that it is hard to sit still: 0 = Not at all Becoming easily annoyed or irritable: 0 = Not at all Feeling afraid as if something awful might happen: 0 = Not at all Total BENNY-7 score (0-4 normal; 5-9 mild; 10-14 moderate; 15-21 severe): 1 Source: Developed by Drs. Eric Gaytan, Petra Maza, Skyler Marrero and colleagues, with an educational belinda from [employer]. Physical exam (Primary Care) Vital Signs: Last Vital Signs Temp 97.2 F 09/17/24 11:32 Pulse 90 09/17/24 11:32 BP 130/76 09/17/24 11:32 Pulse Ox 95 09/17/24 11:32 Oxygen Delivery Method Room Air 09/17/24 11:32 BMI result Body Mass Index 25.2 Tobacco/Smoking Status: Tobacco use Status Tobacco use date assessed 09/17/24 09/17/24 11:11 Patient Tobacco Use Status Current everyday Tobacco 09/17/24 11:42 e-Cigarette/Vaping Use Currently Using 09/17/24 11:42 Are you ready to quit: No Tobacco cessation counseling provided: Yes PHQ-9: PHQ-9 Score PHQ-9: Total score 1 09/17/24 11:42 Depression Screening Interpretation: Negative Thrive Assessment: Date of Thrive Assessment Date Thrive assessed 09/17/24 09/17/24 11:11 Currently or been in a relationship where the following occur: No concerns reported Coding Level of Care Code New Pt Level 4 (69424) Complex EM visit Add On G2211 Diagnoses Diabetes mellitus E11.9 Assessment & Plan Assessment & Plan (1) Diabetes mellitus: Code(s): E11.9 - Type 2 diabetes mellitus without complications Category: Medical Plan: History of Present Illness - The patient is a 69-year-old male presenting with routine follow-up for diabetes management and preventative care. - Diabetes Mellitus: The patient has a history of diabetes mellitus, with the last recorded blood sugar from the previous year. - The patient is due for blood work and is instructed to go fasting for accurate results. - Medication adherence is noted, with metformin being the primary medication, and the patient typically coordinates refills through the pharmacy. - Preventative Care: The patient is up to date on vaccinations, including the Prevnar 20, and acknowledges the importance of vaccines. - A prostate biopsy is scheduled with Dr. Ordonez, and the patient is aware of the procedure details. 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 Review of Systems - General: Denies any new symptoms or concerns. Physical Exam General: Cooperative and healthy appearing Nutritional Appearance: Well nourished Orientation/consciousness: Patient oriented x3 Limitations: No limitations Head: Normal to inspection General: Appearance normal, both eyes and all related structures Neck: Normal visual inspection Chest: Normal palpation of entire chest wall Respiratory: N ormal respiratory effort Neurology: Patient oriented x3, but reports chronic right shoulder pain. Results Plan 1. Diabetes Mellitus - Plan to perform fasting blood work to monitor glucose levels. - Continue metformin with refills coordinated through the pharmacy. 2. Preventative Care - Prostate biopsy scheduled with Dr. Ordonez for further evaluation. - Vaccination status confirmed as up to date, including Prevnar 20. Discussion Notes I discussed with the patient the importance of maintaining up-to-date vaccinations, including the Prevnar 20, which he has already received. We also reviewed his diabetes management plan, emphasizing the need for fasting blood work to monitor glucose levels. I confirmed that his prostate biopsy is scheduled with Dr. Ordonez, and we will follow up on the results. The patient is advised to continue coordinating medication refills through the pharmacy. We agreed on a follow-up appointment in six months to reassess his condition and review any new developments. Patient Instructions - Schedule and complete fasting blood work as ordered. - Continue taking metformin as prescribed and coordinate refills through the pharmacy. - Attend the scheduled prostate biopsy with Dr. Ordonez on September 30. - Maintain up-to-date vaccinations, including Prevnar 20. - Follow up in six months for reassessment. Orders: Orders Basic Metabolic Panel Today E11.9 - Type 2 diabetes mellitus without complications Lipid Panel Today E11.9 - Type 2 diabetes mellitus without complications Liver Panel Today E11.9 - Type 2 diabetes mellitus without complications Hemoglobin A1c Today E11.9 - Type 2 diabetes mellitus without complications Thyroid Stimulating Hormone Today E11.9 - Type 2 diabetes mellitus without complications Microalbumin, Random (w Creat) Today E11.9 - Type 2 diabetes mellitus without complications Complete Blood Count no Diff Today E11.9 - Type 2 diabetes mellitus without complications UA and rflx microscopic Today E11.9 - Type 2 diabetes mellitus without complications Medications: Discontinued levofloxacin take 1 tablet day before procedure, 1 tablet day of procedure and 1 tablet day after procedure Discontinued Reason: Patient Completed Course 500 mg PO DAILY 3 tabs 0RF 3 days R97.20 - Elevated prostate specific antigen [PSA]
[2024-09-17 11:32] VITALS: BP 130/76; PULSE 90; TEMP 36.2; O2SAT 95; BMI 25.2
--- OUTSIDE RECORDS SUMMARY | 2024-09-17 13:13 | XMS_ITS | Patient Health Record ---
Author Organization [facility] Address [address] [place] [address] Care Team Providers Care Reading Aide Name Role Phone Tk Kim MD Primary Care Provider Marcel Vazquez Jr Unavailable [phone] Allergies Allergen (clinical drug ingredient) Drug/Non Drug [...] Problem Status W/U Status Risk Notes Problem [id number] Colon cancer screening (Z12.11) Active confirmed Problem [id number] GERD without esophagitis (K21.9) Active confirmed Plan Of Treatment Future Test Test Name Order Date UPPER GI ENDOSCOPY 01/01/2019 COLONOSCOPY 01/01/2019 Insurance Providers Payer Name Payer Address Payer Phone Subscriber Number Group Number Insured Name Patient Relationship to Insured Coverage Start Date Coverage End Date [facility] [address] [place] [address] [id number] DIO CRANDALL Self - patient is the insured Medical (General) History Medical History History ICD Code TIA in 2006 COPD BRONCHITIS seasonal allergies gastroesophageal reflux disease glaucoma elevated cholesterol Surgical History Surgery Date(Month/Year) appendectomy 1960 hemorrhoidectomy 1983? COMPOUND FRACTURE TIB/FIB 1976
== END 2024-09-17 11:51 | disposition home or self-care (01) ==
LOC: HO.HMCHD 11:07
PROVIDERS: PCP Internal Medicine; Visit Provider Internal Medicine
DX: E11.9 Type 2 diabetes mellitus without complications (principal)

== ENCOUNTER → 2024-09-17 11:06 | Outpatient (BNVA) | payer MEDICARE, SELFPAY | PROVIDERS: PCP Internal Medicine; Visit Provider Internal Medicine | DX: E11.9 Type 2 diabetes mellitus without complications (principal); F17.210 Nicotine dependence, cigarettes, uncomplicated; Z71.6 Tobacco abuse counseling | CPT/HCPCS: 99202 ==

== ENCOUNTER 2024-09-30 07:40 | Outpatient (REF) | payer MEDICARE, SELFPAY ==
--- OUTSIDE RECORDS SUMMARY | 2024-09-30 07:42 | XMS_ITS | Patient Health Record ---
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 Name Role Phone Tk Kim MD Primary Care Provider Marcel Vazquez Jr Unavailable [phone] Allergies Allergen (clinical drug ingredient) Drug/Non Drug [...] Problem Status W/U Status Risk Notes Problem [id number] Colon cancer screening (Z12.11) Active confirmed Problem [id number] GERD without esophagitis (K21.9) Active confirmed Plan Of Treatment Future Test Test Name Order Date UPPER GI ENDOSCOPY 01/01/2019 COLONOSCOPY 01/01/2019 Insurance Providers Payer Name Payer Address Payer Phone Subscriber Number Group Number Insured Name Patient Relationship to Insured Coverage Start Date Coverage End Date [facility] [address] [place] [address] [id number] DIO CRANDALL Self - patient is the insured Medical (General) History Medical History History ICD Code TIA in 2006 COPD BRONCHITIS seasonal allergies gastroesophageal reflux disease glaucoma elevated cholesterol Surgical History Surgery Date(Month/Year) appendectomy 1960 hemorrhoidectomy 1983? COMPOUND FRACTURE TIB/FIB 1976
--- NOTE | 2024-09-30 08:34 | P.OP_ITS ---
Operative Note Operative Note Date of Service: 09/30/24 Narrative: Preoperative diagnosis: Elevated PSA Postoperative diagnosis: Elevated PSA Procedure: 1. transrectal ultrasound measurement of prostate 2. transrectal ultrasound-guided pudendal nerve block 3. transrectal ultrasound-guided prostate biopsy 12 core Surgeon: Dr. Alex Ordonez Anesthetic: 10cc 1% lidocaine Indications for procedure: Elevated PSA 5.5 Counselling: Technical aspects, risks and benefits of proposed procedure were discussed in full. All questions have been answered, written consent has been obtained and patient agrees to proceed. Procedure: The patient was brought into the procedure area and placed in a left lateral decubitus position. Patient identity confirmed. Perioperative antibiotics confirmed. Safety pause time out performed. TRISHA was performed to dilate rectal sphincter Iodine 10cc with 60 cc gel was placed per rectum to reduce infection risk using a catheter tip syringe. 8 Hz Blaire rectal end-fire ultrasound probe was placed transrectally without difficulty. The prostate was visualized. Seminal vesicles were normal. Prostate margins were clearly demarcated. Bladder was seen superiorly. No cystic structures were noted No calcifications were noted at the surgical margin The prostate was otherwise homogeneous in nature - no imaging findings consistent with localized prostate cancer The prostate was measured in 3 dimensions Prostatic Width: 4.2 cm Prostatic Height: 3.3 cm Urethral Length: 4.4 cm Total volume equals : 35 ml An ultrasound-guided pudendal nerve block was performed using a 22 gauge spinal needle in the sagittal plane. 4 cc of 1% lidocaine placed at the junction of each seminal vesicle and 2 cc placed at the apex of the prostate. A 12 core biopsy was performed with 6 cores each side using an 18 gauge prostate biopsy gun. Two cores each were taken at the prostate apex, mid and base on each side. Cores were spaced between lateral and medial aspects. Each core was examined as placed on specimen foam as part of vice president quality improvement to ensure a minimum 1 cm of length and minimal discontinuity. He tolerated the procedure well with minimal rectal bleeding. Blood pressure remained stable following procedure. He was able to ambulate to bathroom after 5 minutes. Printed instructions regarding antibiotic use and common adverse events from the procedure such as low-grade temperature, potential infection and bleeding were given. He understands to call the office or go to an emergency room should any of these events arise. Pathology: 12 core prostate biopsy. CPT code 45455: Transrectal ultrasound; this is a diagnostic test for evaluation of the prostate and surrounding structures, looking for abnormalities or suspicious areas worrisome for cancer CPT code 74134: Biopsy, prostate; needle or punch, single or multiple, any approach CPT code 32646: Ultrasonic guidance for needle placement (eg, biopsy, aspiration, injection, localization device), imaging supervision and interpretat ion
[2024-09-30] MEDS: Lidocaine HCl 1 % MPF 5 ML VIAL 10 ML SUBCUT (08:42)
== END 2024-09-30 07:41 | disposition home or self-care (01) ==
LOC: HO.US 07:40
PROVIDERS: Visit Provider Urology
DX: R97.20 Elevated prostate specific antigen [PSA] (principal)
CPT/HCPCS: 55700; 76942; 88305; J2003

== ENCOUNTER → 2024-09-30 07:40 | Outpatient (BNV) | payer MEDICARE, SELFPAY | PROVIDERS: Visit Provider Urology | DX: R97.20 Elevated prostate specific antigen [PSA] (principal) | CPT/HCPCS: 55700; 76872; 76942 ==

== ENCOUNTER 2024-10-10 15:19 | Outpatient (AMB) | payer MEDICARE, SELFPAY ==
--- NOTE | 2024-10-10 15:20 | MHC.OFFVIS ---
Intake Visit Reasons: Prostate biopsy results Intake Note: Patient is present for PROSTATE BIOPSY RESULTS Urology Medication:NONE Antibiotic Allergy:PENICILLIN V,ERYTHROMYCIN Blood Thinner:ASPIRIN Interior Design Assistant Required: No Allergies erythromycin base (ERYTHROMYCIN BASE) Allergy (Severe, Verified 10/10/24 15:21) SEVERE N/V penicillin V Allergy (Unknown, Verified 10/10/24 15:21) Unknown HPI Comments Details: Indra is a pleasant male. He is a patient of Dr. Kim. He seen for the following urologic conditions - prostate cancer Telemedicine Evaluation 15 min Consultation DoxAbcellute Bea Video Follow-up prostate biopsy TRUS 35 g Grade group 1, moderate volume, clinically localized PT1c Plan prostate MRI and Prolaris testing Prostate cancer Histologic type: Prostatic adenocarcinoma, acinar type Dallas score: 6 (3+3) (LBL 30%, LBM 10%, LML 50%, LMM 80%, BATEMAN 10%) Number cores positive: 6 Total number of cores: 12 Periprostatic fat inv.: Not identified. Seminal vesicle inv.: Not identified. Perineural inv.: Not identified. Lympatic and/or vascular invasion: Not identified Elevated PSA with bladder outlet obstruction PSA - 11/16 PSA 5.0 8%Free, 08/17 4.8 6% PCP T 30% chance high-grade prostate cancer Significant medical comorbidities PFSH Medical History Diabetes mellitus Ex-smoker Polycythemia COPD (chronic obstructive pulmonary disease) Smoker Surgical History History of colonoscopy (~03/12/19) Family History Mother No problems noted. Father No problems noted. Social History Housing: Other Patient Tobacco Use Status: Current everyday Tobacco user Cigarette Packs Per Day: 0.5 Cigarettes Per Day: 6 e-Cigarette/Vaping Use: Currently Using service: No Current occupational status: retired Cognitive needs: No Hearing needs: No Vision needs: Yes (rx glasses) Review of Systems Const All systems reviewed & are unremarkable except as noted in HPI and below Reports no additional complaints Resp Reports no additional complaints GI Reports no additional complaints Reports as per HPI Musc Reports no additional complaints Physical Exam Telemedicine evaluation Appropriate responses Regular breathing rate and rhythm HEENT Head: Yes normal to inspection Ears: hearing grossly normal bilaterally Eyes General: appearance normal, both eyes and all related structures Neck Neck: Yes normal visual inspection Chest Chest palpation & inspection: normal inspection of the chest Resp Effort & Inspection: normal respiratory effort and able to speak in complete sentences Telehealth Telehealth Location of provider rendering services: practice address Location of patient: address on file Patient Identification confirmed using: Name, : Yes Telehealth method: voice only Patient verbally consented to treatment: Yes Patient verbally consented to billing insurance company: Yes Patient informed of any privacy concerns related to visit: Yes Assessment & Plan Assessment & Plan (1) Hormone sensitive prostate cancer: Code(s): C61 - Malignant neoplasm of prostate; Z19.1 - Hormone sensitive malignancy status Category: Medical Plan Prostate MRI Prostate genetics Orders: Orders MR Prostate wo/w con Today C61 - Malignant neoplasm of prostate, Z19.1 - Hormone sensitive malignancy status Medications: New finasteride 5 mg PO DAILY 30 tabs 1RF 30 days N32.0 - Bladder-neck obstruction Patient Instructions: This note is constructed using voice recognition software. While every effort has been made to ensure accuracy charge master coordinator errors may have been included. Imaging studies, laboratory and physical exam results were discussed and reviewed in detail. No major barriers to patient understanding were identified. An opportunity to ask questions regarding the treatment plan was provided. All questions were answered. The patient expressed understanding and agreement with the above treatment plan. The patient is aware they should contact our office by phone for worsening of their current condition or the appearance of new urologic symptoms. Compliance is encouraged with any medications and followup testing that is ordered. It is a privilege to participate in the urologic care of your patient. If you have any questions or concerns regarding treatment for the above conditions, or other urologic issues, please do not hesitate to contact me. The office telephone contact is [phone]. Sincerely, Dr Alex Ordonez MD, [facility] [place] - Urology Compassionate Specialist Care for the Genitourinary System Coding Level of Care Code Tele Est Pt Level 4 (73473) Diagnoses Hormone sensitive prostate cancer C61; Z19.1
--- OUTSIDE RECORDS SUMMARY | 2024-10-10 15:22 | XMS_ITS | Patient Health Record ---
Author Organization [facility] Address [address] [place] [address] Care Team Providers Care Vp Talent Management Name Role Phone Julio (RETIRED) Tk BOO Primary Care Provide Marcel Reid Jr Unavailable [phone] Allergies Allergen (clinical drug ingredient) Drug/Non [...] Problem Status W/U Status Risk Notes Problem [id number] Colon cancer screening (Z12.11) Active confirmed Problem [id number] GERD without esophagitis (K21.9) Active confirmed Plan Of Treatment Future Test Test Name Order Date UPPER GI ENDOSCOPY 01/01/2019 COLONOSCOPY 01/01/2019 Insurance Providers Payer Name Payer Address Payer Phone Subscriber Number Group Number Insured Name Patient Relationship to Insured Coverage Start Date Coverage End Date [facility] [address] [place] [address] [id number] DIO CRANDALL Self - patient is the insured Medical (General) History Medical History History ICD Code TIA in 2006 COPD BRONCHITIS seasonal allergies gastroesophageal reflux disease glaucoma elevated cholesterol Surgical History Surgery Date(Month/Year) appendectomy 1960 hemorrhoidectomy 1983? COMPOUND FRACTURE TIB/FIB 1976
== END 2024-10-10 15:58 | disposition home or self-care (01) ==
LOC: HO.HUSH 15:19
PROVIDERS: Visit Provider Urology
DX: C61 Malignant neoplasm of prostate (principal); Z19.1 Hormone sensitive malignancy status
CPT/HCPCS: 99214

== ENCOUNTER → 2024-11-17 09:19 | Outpatient (BNV) | payer MEDICARE, SELFPAY | PROVIDERS: Visit Provider Radiology Diagnostic Radiology | DX: C61 Malignant neoplasm of prostate (principal) | CPT/HCPCS: 72197; 76377 ==

== ENCOUNTER 2024-11-17 09:21 | Outpatient (REF) | payer MEDICARE, SELFPAY ==
--- NOTE | ~2024-11-17 | MR_ITS ---
EXAMINATION: MR PROSTATE WITHOUT THEN WITH IV CONTRAST, MR EXAM UNLISTED HISTORY: C61 - Malignant neoplasm of prostate TECHNIQUE: 1.5T body coil survey of the pelvis was performed. Phase array coil imaging of the prostate was performed in multiplanar high resolution axial, coronal, sagittal fast spin echo T2 and axial T1 weighted imaging sequences. Axial diffusion imaging at intermediate and high field performed with ADC mapping. Next, 8 mL Gadavist was given by intravenous infusion, and dynamic axial imaging performed. 3-D reconstructions and post-processing were performed on an independent workstation by the radiologist for biopsy planning using image fusion. COMPARISON: There are no prior studies available for comparison. CLINICAL DATA: Most recent PSA: 5.47 ng/mL on 08/21/2024. PSA Density: 0.23 ng/mL squared Prostate Biopsy: Positive biopsy on 09/30/2024 with a Katherin score 3+3 = 6. FINDINGS: Prostate size: 4.1 x 4.0 x 2.8 cm. Calculated prostate volume is 23.9 mL. Hemorrhage: None. Transitional Zone: There is mild heterogeneous nodular hypertrophy of the transitional zone. There is an area of interest in the transitional zone as described below: Area of interest #1: Location: Left anterior transitional zone in the mid gland/apex measuring approximately 13 mm (series 9, images 15-16). DWI PI-RADS v2.1 score: 4 T2 PI-RADS v2.1 score: 4 DCE PI-RADS v2.1 score: + Overall PI-RADS v2.1 score: 4 Capsular contact: no Extracapsular extension: None Seminal vesicle invasion: None Neurovascular bundle involvement: Not Peripheral Zone: There are linear areas of decreased T2 signal intensity within the peripheral zone. There are no foci of restricted diffusion. Seminal Vesicles/Ejaculatory Ducts: Symmetric and normal in signal and caliber. Pelvic Lymph Nodes: No obturator or internal iliac lymph nodes meeting size criteria for adenopathy. Marrow Signal: Normal marrow signal and enhancement without focal lesion identified. MR/MR CAD IMPRESSION: Area of interest in the left anterior transitional zone in the mid gland/apex, suspicious for clinically significant prostate carcinoma. PI-RADS 4: High (clinically significant cancer is likely to be present) PI-RADS Assessment Categories PI-RADS 1: Very low (clinically significant cancer is highly unlikely to be present) PI-RADS 2: Low (clinically significant cancer is unlikely to be present) PI-RADS 3: Intermediate (the presence of clinically significant cancer is equivocal) PI-RADS 4: High (clinically significant cancer is likely to be present) PI-RADS 5: Very high (clinically significant cancer is highly likely to be present) [employer]. MR Prostate Imaging Reporting and Data System version 2.1. [email or web address] Electronically signed by: Eric Altamirano MD 11/17/2024 11:43 AM EDT
--- NOTE | ~2024-11-17 | MR_ITS ---
EXAMINATION: MR PROSTATE WITHOUT THEN WITH IV CONTRAST, MR EXAM UNLISTED HISTORY: C61 - Malignant neoplasm of prostate TECHNIQUE: 1.5T body coil survey of the pelvis was performed. Phase array coil imaging of the prostate was performed in multiplanar high resolution axial, coronal, sagittal fast spin echo T2 and axial T1 weighted imaging sequences. Axial diffusion imaging at intermediate and high field performed with ADC mapping. Next, 8 mL Gadavist was given by intravenous infusion, and dynamic axial imaging performed. 3-D reconstructions and post-processing were performed on an independent workstation by the radiologist for biopsy planning using image fusion. COMPARISON: There are no prior studies available for comparison. CLINICAL DATA: Most recent PSA: 5.47 ng/mL on 08/21/2024. PSA Density: 0.23 ng/mL squared Prostate Biopsy: Positive biopsy on 09/30/2024 with a Katherin score 3+3 = 6. FINDINGS: Prostate size: 4.1 x 4.0 x 2.8 cm. Calculated prostate volume is 23.9 mL. Hemorrhage: None. Transitional Zone: There is mild heterogeneous nodular hypertrophy of the transitional zone. There is an area of interest in the transitional zone as described below: Area of interest #1: Location: Left anterior transitional zone in the mid gland/apex measuring approximately 13 mm (series 9, images 15-16). DWI PI-RADS v2.1 score: 4 T2 PI-RADS v2.1 score: 4 DCE PI-RADS v2.1 score: + Overall PI-RADS v2.1 score: 4 Capsular contact: no Extracapsular extension: None Seminal vesicle invasion: None Neurovascular bundle involvement: Not Peripheral Zone: There are linear areas of decreased T2 signal intensity within the peripheral zone. There are no foci of restricted diffusion. Seminal Vesicles/Ejaculatory Ducts: Symmetric and normal in signal and caliber. Pelvic Lymph Nodes: No obturator or internal iliac lymph nodes meeting size criteria for adenopathy. Marrow Signal: Normal marrow signal and enhancement without focal lesion identified. MR/MR Prostate wo/w con IMPRESSION: Area of interest in the left anterior transitional zone in the mid gland/apex, suspicious for clinically significant prostate carcinoma. PI-RADS 4: High (clinically significant cancer is likely to be present) PI-RADS Assessment Categories PI-RADS 1: Very low (clinically significant cancer is highly unlikely to be present) PI-RADS 2: Low (clinically significant cancer is unlikely to be present) PI-RADS 3: Intermediate (the presence of clinically significant cancer is equivocal) PI-RADS 4: High (clinically significant cancer is likely to be present) PI-RADS 5: Very high (clinically significant cancer is highly likely to be present) [employer]. MR Prostate Imaging Reporting and Data System version 2.1. [email or web address]/ Electronically signed by: Eric Altamirano MD 11/17/2024 11:43 AM EDT
--- OUTSIDE RECORDS SUMMARY | 2024-11-17 10:09 | XMS_ITS | Patient Health Record ---
Author Organization [facility] Address [address] [place] [address] Care Team Providers Care Fashion Adviser Name Role Phone Julio (RETIRED) Tk BOO Primary Care Provide Marcel Reid Jr Unavailable Allergies Allergen (clinical drug ingredient) [...] Problem Status W/U Status Risk Notes Problem [id number] Colon cancer screening (Z12.11) Active confirmed Problem [id number] GERD without esophagitis (K21.9) Active confirmed Plan Of Treatment Future Test Test Name Order Date UPPER GI ENDOSCOPY 01/01/2019 COLONOSCOPY 01/01/2019 Insurance Providers Payer Name Payer Address Payer Phone Subscriber Number Group Number Insured Name Patient Relationship to Insured Coverage Start Date Coverage End Date [facility] [address] [place] [address] [id number] DIO CRANDALL Self - patient is the insured Medical (General) History Medical History History ICD Code TIA in 2006 COPD BRONCHITIS seasonal allergies gastroesophageal reflux disease glaucoma elevated cholesterol Surgical History Surgery Date(Month/Year) appendectomy 1960 hemorrhoidectomy 1983? COMPOUND FRACTURE TIB/FIB 1976
== END 2024-11-17 09:22 | disposition home or self-care (01) ==
LOC: HO.MRI 09:21
PROVIDERS: Visit Provider Urology
DX: C61 Malignant neoplasm of prostate (principal); Z19.1 Hormone sensitive malignancy status
CPT/HCPCS: 72197; 76377; A9585

== ENCOUNTER 2024-12-05 10:09 | Outpatient (AMB) | payer MEDICARE, SELFPAY ==
--- NOTE | 2024-12-05 10:10 | MHC.OFFVIS ---
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 He is a patient of Dr. Kim. He seen for the following urologic conditions - prostate cancer Telemedicine Evaluation 15 min Consultation gBox Bea Video Follow-up prostate biopsy TRUS 35 g Grade group 1, moderate volume, clinically localized PT1c Staging - MRI 11/17 - Area of interest in the left anterior transitional zone in the mid gland/apex, suspicious for clinically significant prostate carcinoma 13 mm PI-RADS 4 Prolaris molecular score: 3.6 Test recommendation for possible treatment path: Based on the Prolaris molecular score and clinical variables, this patient may be a candidate for active surveillance Start finasteride 4 month follow-up check PSA Prostate cancer 09/17 low volume, low-grade, organ confined disease Histologic type: Prostatic adenocarcinoma, acinar type Katherin score: 6 (3+3) (LBL 30%, LBM 10%, LML 50%, LMM 80%, BATEMAN 10%) Number cores positive: 6 Total number of cores: 12 Periprostatic fat inv.: Not identified. Seminal vesicle inv.: Not identified. Perineural inv.: Not identified. Lympatic and/or vascular invasion: Not identified Elevated PSA with bladder outlet obstruction PSA - 11/16 PSA 5.0 8%Free, 08/17 4.8 6% PCP T 30% chance high-grade prostate cancer Significant medical comorbidities PFSH Medical History Diabetes mellitus Ex-smoker Polycythemia COPD (chronic obstructive pulmonary disease) Smoker Surgical History History of colonoscopy (~03/12/19) Family History Mother No problems noted. Father No problems noted. Social History Housing: Other Patient Tobacco Use Status: Current everyday Tobacco user Cigarette Packs Per Day: 0.5 Cigarettes Per Day: 6 e-Cigarette/Vaping Use: Currently Using service: No Current occupational status: retired Cognitive needs: No Hearing needs: No Vision needs: Yes (rx glasses) Review of Systems Const All systems reviewed & are unremarkable except as noted in HPI and below Reports no additional complaints Resp Reports no additional complaints GI Reports no additional complaints Reports as per HPI Musc Reports no additional complaints Physical Exam Telemedicine evaluation Appropriate responses Regular breathing rate and rhythm HEENT Head: Yes normal to inspection Ears: hearing grossly normal bilaterally Eyes General: appearance normal, both eyes and all related structures Neck Neck: Yes normal visual inspection Chest Chest palpation & inspection: normal inspection of the chest Resp Effort & Inspection: normal respiratory effort and able to speak in complete sentences Telehealth Telehealth Telehealth Platform: gBox Location of provider rendering services: practice address Location of patient: address on file Patient Identification confirmed using: Name, : Yes Telehealth method: video Patient verbally consented to treatment: Yes Patient verbally consented to billing insurance company: Yes Patient informed of any privacy concerns related to visit: Yes Minutes spent on Phone/Video with Pt.: 15 Assessment & Plan Assessment & Plan (1) Hormone sensitive prostate cancer: Code(s): C61 - Malignant neoplasm of prostate; Z19.1 - Hormone sensitive malignancy status Category: Medical Plan Start finasteride Four month follow-up check PSA Orders: Orders PSA,Total (Free>4and<10) 4 Months C61 - Malignant neoplasm of prostate, Z19.1 - Hormone sensitive malignancy status Medications: Changed From finasteride 5 mg PO DAILY 30 days 30 tabs 1RF N32.0 - Bladder-neck obstruction To finasteride 5 mg PO DAILY 90 tabs 1RF 90 days N32.0 - Bladder-neck obstruction Patient Instructions: This note is constructed using voice recognition software. While every effort has been made to ensure accuracy tactical deception plans officer errors may have been included. Imaging studies, laboratory and physical exam results were discussed and reviewed in detail. No major barriers to patient understanding were identified. An opportunity to ask questions regarding the treatment plan was provided. All questions were answered. The patient expressed understanding and agreement with the above treatment plan. The patient is aware they should contact our office by phone for worsening of their current condition or the appearance of new urologic symptoms. Compliance is encouraged with any medications and followup testing that is ordered. It is a privilege to participate in the urologic care of your patient. If you have any questions or concerns regarding treatment for the above conditions, or other urologic issues, please do not hesitate to contact me. The office telephone contact is [phone]. Sincerely, Dr Alex Ordonez MD, [facility] - Urology Compassionate Specialist Care for the Genitourinary System Coding Level of Care Code Tele Est Pt Level 4 (53966) Diagnoses Hormone sensitive prostate cancer C61; Z19.1
--- OUTSIDE RECORDS SUMMARY | 2024-12-05 11:34 | XMS_ITS | Patient Health Record ---
Author Organization [facility] Address [address] [place] [address] Care Team Providers Care Access Clerk Name Role Phone Julio (RETIRED) Tk BOO [...] Problem Status W/U Status Risk Notes Problem [id number] Colon cancer screening (Z12.11) Active confirmed Problem [id number] GERD without esophagitis (K21.9) Active confirmed Plan Of Treatment Future Test Test Name Order Date UPPER GI ENDOSCOPY 01/01/2019 COLONOSCOPY 01/01/2019 Insurance Providers Payer Name Payer Address Payer Phone Subscriber Number Group Number Insured Name Patient Relationship to Insured Coverage Start Date Coverage End Date [facility] [address] [place] [address] 5 [id number] DIO CRANDALL Self - patient is the insured Medical (General) History Medical History History ICD Code TIA in 2006 COPD BRONCHITIS seasonal allergies gastroesophageal reflux disease glaucoma elevated cholesterol Surgical History Surgery Date(Month/Year) appendectomy 1960 hemorrhoidectomy 1983? COMPOUND FRACTURE TIB/FIB 1976
== END 2024-12-05 10:39 | disposition home or self-care (01) ==
LOC: HO.HUSH 10:09
PROVIDERS: Visit Provider Urology
DX: C61 Malignant neoplasm of prostate (principal); Z19.1 Hormone sensitive malignancy status
CPT/HCPCS: 99214

== ENCOUNTER 2025-03-23 09:39 | Outpatient (REF) | payer MEDICARE, SELFPAY ==
--- OUTSIDE RECORDS SUMMARY | 2025-03-23 10:18 | XMS_ITS | Patient Health Record ---
Author Organization [facility] Address [address] [place] [address] Care Team Providers Care Medical Records Analyst Name Role Phone Julio (RETIRED) Tk BOO Primary Care Provide Marcel Reid Jr Unavailable [phone] Allergies Allergen (clinical drug ingredient) Drug/Non Drug Allergy documented on EMR Reaction Allergy Type Onset Date Status erythromycin Erythromycin Unknown Drug Allergy A ctive penicillin G Penicillin G Sodium Unknown Drug Allergy Active Reason For Referral No Information Medications Medication SIG (Take, Route, Frequency, Duration) Notes Start Date End Date Status Clopidogrel Bisulfate 75 MG Tablet 1 tablet Orally Once a day; Duration: 30 day(s) Active Omeprazole 20 MG Capsule Delayed Release 1 capsule Orally Once a day; Duration: 30 day(s) Active Simvastatin 40 MG Tablet 1 tablet in the evening Orally Once a day; Duration: 30 day(s) Active Aspirin Adult Low Dose 81 MG Tablet Delayed Release 1 tablet Orally Once a day; Duration: 30 day(s) Active Ibuprofen 200 MG Tablet 1 tablet with fo od or milk as needed Orally prn Active Latanoprost 0.005 % Solution 1 drop into affected eye in the evening Ophthalmic Once a day Active Ventolin HFA 108 (90 Base) MCG/ACT Aerosol Solution 2 puffs as needed Inhalation every 6 hrs Active Flovent HFA 220 MCG/ACT Aerosol 1 puff Inhalation Twice a day Active MiraLax (colon prep) 8.3 ounce ((238) grams mixed with Gatorade or Crystal Light orally begin at 5:00 p.m. the day before the procedure; Duration: 1 day 01/01/2019 Active ZyrTEC Allergy 10 MG Tablet 1 tablet Ora lly Once a day; Duration: 30 day(s) Active Carisoprodol 350 MG Tablet 1 tablet as n eeded Orally Four times a day Active Immunizations Vaccine Route Administration Date Status Comme nts Influenza Unknown 01/01/2019 Refused Social History Tobacco Use: Social History Observation Description Date Details (start date - stop date) Current Smoker NA - NA Social History Drugs/Alcohol: Social Info Question Answer Notes Alcohol Screen Did you have a drink containing alcohol in the past year? Yes How often did you have a drink containing alcohol in the past year? 2 to 4 times a month (2 points) How many drinks did you have on a typical day when you were drinking in the past year? 3 or 4 drinks (1 point) How often did you have 6 or more drinks on one occasion in the past year? Less than monthly (1 point) Points 4 Interpretation Positive Tobacco Use: Social Info Question Answer Notes Tobacco Use/Smoking Patient is a current smoker How often do you smoke cigarettes? every day How many cigarettes a day do you smoke? 6-10 How soon after you wake up do you smoke your first cigarette? 6-30 minutes Are you interested in quitting? Ready to quit Additional Details Category Social Info Options Details Miscellaneous: Marital status: Occupation: retired Problems Problem Type SNOMED Code ICD Code Onset Dates Problem Status W/U Status Risk Notes Problem Colon cancer screening (154604418) Colon cancer screening (Z12.11) Active confirmed Problem Gastroesophageal reflux disease (096680470) GERD without esophagitis (K21.9) Active confirmed Plan Of Treatment Future Test Test Name Order Date UPPER GI ENDOSCOPY 01/01/2019 COLONOSCOPY 01/01/2019 Insurance Providers Payer Name Payer Address Payer Phone Subscriber Number Group Number Insured Name Patient Relationship to Insured Coverage Start Date Coverage End Date [facility] [address] [place] [phone] [id number] DIO CRANDALL Self - patient is the insured Medical (General) History Medical History History ICD Code TIA in 2006 COPD BRONCHITIS seasonal allergies gastroesophageal reflux disease glaucoma elevated cholesterol Surgical History Surgery Date(Month/Year) appendectomy 1960 hemorrhoidectomy 1983? COMPOUND FRACTURE TIB/FIB 1976
[2025-03-23 13:52] LABS: PSA,Total (Free>4and<10) 3.43 ng/mL (0.00-4.00)
== END 2025-03-23 09:40 | disposition home or self-care (01) ==
LOC: HO.10HDLR 09:39
PROVIDERS: Visit Provider Urology
DX: C61 Malignant neoplasm of prostate (principal); J40 Bronchitis, not specified as acute or chronic; J43.9 Emphysema, unspecified; E11.9 Type 2 diabetes mellitus without complications; E78.2 Mixed hyperlipidemia; K21.9 Gastro-esophageal reflux disease without esophagitis; J30.2 Other seasonal allergic rhinitis; F17.210 Nicotine dependence, cigarettes, uncomplicated; Z19.1 Hormone sensitive malignancy status; Z86.73 Personal history of transient ischemic attack (TIA), and cerebral infarction without residual deficits; Z12.5 Encounter for screening for malignant neoplasm of prostate
CPT/HCPCS: 36415; 84153; 99212

== ENCOUNTER 2025-03-23 09:55 | Outpatient (AMB) | payer MEDICARE, SELFPAY ==
--- NOTE | 2025-03-23 09:58 | A.OFFPC_ITS ---
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 Required: No Accompanied by: Self / Same As Patient Allergies erythromycin base (ERYTHROMYCIN BASE) Allergy (Severe, Verified 03/23/25 09:58) SEVERE N/V penicillin V Allergy (Unknown, Verified 03/23/25 09:58) Unknown Medication List - Last Reconciled 03/23/25 by Scottie Rutledge MD aspirin 81 mg PO DAILY bimatoprost 0.01% (Lumigan) 1 drp ophthalmic (eye) QPM cetirizine (Zyrtec) 10 mg PO DAILY clopidogrel 75 mg PO DAILY 90 days finasteride 5 mg PO DAILY 90 days fluticasone furoate-vilanterol 100-25 mcg/dose (Breo Ellipta) 1 ea inhalation BID metformin ER 500 mg PO BID omeprazole 20 mg PO DAILY simvastatin 40 mg PO DAILY 90 days Tobacco use date assessed: 09/17/24 Fall risk assessment: 2 + Falls in past year Last assessed Fall Risk: 03/23/25 Dental Screening Dental Screen Date: 09/17/24 HPI HPI Comments History of Present Illness Details History of Present Illness The patient is a 69 year old male presenting for management of multiple chronic conditions. He reports general aches and pains associated with aging. 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 The patient has a history of bronchitis and COPD, for which he experiences shortness of breath. Symptoms are reportedly worse at night, particularly after smoking. He manages this with a Breo inhaler and an albuterol inhaler for as- needed use, though he has run out of the albuterol. He is a current smoker. He previously saw a cushion spring assembler, Dr. Fraser, but is no longer under his care. He has a history of TIAs in 2005, for which he takes aspirin 81 mg and Plavix 75 mg daily. He has a diagnosis of hormone-positive prostate cancer and is managed by Dr. Ordonez with finasteride 5 mg. Additional chronic conditions include type 2 diabetes managed with metformin 500 mg twice daily, acid reflux treated with omeprazole 20 mg, and hypercholesterolemia managed with simvastatin 40 mg. His last HbA1c was 6.4%, and the current result is 6.7%. He also takes cetirizine for seasonal allergies, which he describes as year-round. For health maintenance, the patient is up to date on his vaccinations, having received his flu shot in December, as well as COVID and RSV immunizations. Medical History: - Transient Ischemic Attacks (TIAs) in 2 - Hormone-positive prostate cancer, unde r the care of Dr. Ordonez - Type 2 Diabetes Mellitus - Gastroesophageal Reflux Disease (GERD) - Hyperlipidemia - Chronic Obstructive Pulmonary Disease (COPD) with chronic bronchitis - Allergic rhinitis, year-round - Tobacco use Medications: - Aspirin 81 mg daily for secondary prev ention of TIA - Plavix (clopidogrel) 75 mg daily for s econdary prevention of TIA - Cetirizine (Zyrtec) daily for year-rou nd allergies - Finasteride 5 mg daily for prostate ca ncer - Metformin 500 mg twice daily for type 2 diabetes - Omeprazole 20 mg daily for acid reflux - Simvastatin 40 mg daily for hyperchole sterolemia - Breo inhaler for COPD - Albuterol inhaler as needed for COPD Diagnostic Results: - Labs: Hemoglobin A1c is 6.7%, up from a previous value of 6.4% Social History - Tobacco Use: The patient is a current smoker. - Social Support: The patient recently l ost his , whom he was caring for during her time in hospice. PFSH Medical History Allergic rhinitis GERD without esophagitis Mixed hyperlipidemia TIA (transient ischemic attack) Diabetes mellitus Ex-smoker Polycythemia COPD (chronic obstructive pulmonary disease) Smoker Surgical History History of colonoscopy (~03/12/19) Family History Mother No problems noted. Father No problems noted. Social History Housing: Other Patient Tobacco Use Status: Current everyday Tobacco user Cigarette Packs Per Day: 0.5 Cigarettes Per Day: 6 e-Cigarette/Vaping Use: Currently Using service: No Current occupational status: retired Cognitive needs: No Hearing needs: No Vision needs: Yes (rx glasses) Questionnaire Thrive Questionnaire Date Thrive assessed: 09/17/24 AUDIT C Alcohol Use Questionnaire (AUDIT-C) 1. How often do you have a drink containing alcohol?: 2-4 times a month 2. How many drinks containing alcohol do you have on a typical day when you are drinking?: 1 or 2 3. How often do you have six or more drinks on one occasion?: Never Total Score: 2 BENNY-7 AMB Questionnaire BENNY-7 Date BENNY - 7 assessed: 09/17/24 Source: Developed by Drs. Eric Gaytan, Petra Maza, Skyler Marrero and colleagues, with an educational belinda from [employer]. Review of Systems Narrative Review of Systems - Constitutional: Reports generalized aches and pains of old age. - Respiratory: Reports shortness of breath, attributed to bronchitis and COPD, which is worse at night after smoking. - Cardiovascular: Denies chest pain. - Gastrointestinal: Reports normal bowel function. Denies nausea and vomiting. - Genitourinary: Reports normal urinary function. - Neurological: Denies headaches. - Allergic/Immunologic: Reports year-round seasonal allergies. All systems reviewed & are unremarkable except as reviewed in HPI and above Physical exam (Primary Care) Vital Signs: Last Vital Signs Temp 96.9 F 03/23/25 09:59 Pulse 110 H 03/23/25 09:59 Resp 16 03/23/25 09:59 BP 132/84 03/23/25 09:59 Pulse Ox 95 03/23/25 09:59 Oxygen Delivery Method Room Air 03/23/25 09:59 Care Plan Goal for BP management: Stable BMI result Body Mass Index 25.9 Tobacco/Smoking Status: Tobacco use Status Tobacco use date assessed 09/17/24 03/23/25 10:04 Patient Tobacco Use Status Current everyday Tobacco 03/23/25 10:04 e-Cigarette/Vaping Use Currently Using 03/23/25 10:04 Are you ready to quit: Yes Tobacco cessation counseling provided: Yes Relapse Prevention: discussed the importance of a supportive environment and discussed extending NRT Number of minutes spent counselin CPT code: 62004 - 4-10 Minutes Thrive Assessment: Date of Thrive Assessment Date Thrive assessed 09/17/24 03/23/25 10:04 Narrative Physical Exam General: +Alert and oriented, Well nourished, No acute distress. Eye: Pupils are equal, round and reactive to light, Intact accommodation, Extraocular movements are intact, Normal conjunctiva, Vision unchanged. HENT: Normocephalic, Atraumatic, Tympanic membranes are clear, Normal hearing, Oral mucosa is moist, No pharyngeal erythema, Ear canals patent. Respiratory: Lungs CTA bilaterally, No wheeze, Respirations are non-labored. Cardiovascular: Regular rate, Regular rhythm, S1 auscultated, S2 auscultated, No murmur, Good pulses equal in all extremities, Normal peripheral perfusion, No edema. Gastrointestinal: Soft, Non-tender, Non-distended, Normal bowel sounds, No organomegaly. Musculoskeletal: Normal range of motion, Normal strength, No tenderness, No swelling, No deformity, Normal gait. Integumentary: Warm, Dry, [place], Intact. Neurologic: Alert, Oriented, Normal sensory, Normal motor function, No focal defects, Cranial Nerves II-XII are grossly intact, Normal deep tendon reflexes. Psychiatric: Cooperative, Appropriate mood & affect, Normal judgment. 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 use: without custodial use Diabetes mellitus complication status: without complication Smoker F17.200 TIA (transient ischemic attack) G45.9 Hormone sensitive prostate cancer C61; Z19.1 Mixed hyperlipidemia E78.2 GERD without esophagitis K21.9 Seasonal allergic rhinitis, unspecified trigger J30.2 Allergic rhinitis trigger: unspecified Allergic rhinitis seasonality: seasonal Additional Codes Vital Signs *Quality* - CPT code: 04409 - 4-10 Minutes ([id number]) Assessment & Plan Assessment & Plan (1) COPD (chronic obstructive pulmonary disease): Comment: - The patient reports shortness of breath secondary to his COPD and bronchitis, which worsens at night after smoking. - He will continue his Breo inhaler and a refill for his albuterol inhaler will be sent. Code(s): J44.9 - Chronic obstructive pulmonary disease, unspecified Category: Medical Qualifiers: COPD type: emphysema Emphysema type: unspecified Qualified Code(s): J43.9 - Emphysema, unspecified (2) Diabetes mellitus: Comment: - The patient's HbA1c is 6.7%, a slight increase from 6.4%, but remains at goal (under 7.0%). - He will continue taking metformin 500 mg twice daily. - His glucose will be monitored with upcoming labs. Code(s): E11.9 - Type 2 diabetes mellitus without complications Category: Medical Qualifiers: Diabetes mellitus type: type 2 Diabetes mellitus custodial insulin use: without custodial use Diabetes mellitus complication status: without complication Qualified Code(s): E11.9 - Type 2 diabetes mellitus without complications (3) Smoker: Comment: - The patient was extensively counseled on the necessity of smoking cessation to prevent the progression of his COPD and the future need for supplemental oxygen. - A prescription for a tapering-dose nicotine patch was sent to the pharmacy to aid in quitting. Code(s): F17.200 - Nicotine dependence, unspecified, uncomplicated Category: Social Hx (4) TIA (transient ischemic attack): Comment: - The patient will continue dual antiplatelet therapy with aspirin 81 mg and Plavix 75 mg for secondary prevention. Code(s): G45.9 - Transient cerebral ischemic attack, unspecified Category: Medical (5) Hormone sensitive prostate cancer: Comment: - He will continue taking finasteride 5 mg and maintain follow-up with his oncologist, Dr. Ordonez. Code(s): C61 - Malignant neoplasm of prostate; Z19.1 - Hormone sensitive malignancy status Category: Medical (6) Mixed hyperlipidemia: Comment: - The patient will continue his simvastatin 40 mg, with cholesterol levels to be checked at his next blood draw. Code(s): E78.2 - Mixed hyperlipidemia Category: Medical (7) GERD without esophagitis: Comment: - He will continue omeprazole 20 mg for symptom control. Code(s): K21.9 - Gastro-esophageal reflux disease without esophagitis Category: Medical (8) Allergic rhinitis: Comment: - The patient experiences year-round allergies managed with cetirizine. - He will continue current therapy. Code(s): J30.9 - Allergic rhinitis, unspecified Category: Medical Qualifiers: Allergic rhinitis trigger: unspecified Allergic rhinitis seasonality: seasonal Qualified Code(s): J30.2 - Other seasonal allergic rhinitis Plan: Health Maintenance: - Immunizations: The patient is up-to-date, having received COVID-19, influenza, and RSV vaccines. - Smoking Cessation Counseling: Extensive counseling was provided on the critical need to stop smoking to prevent further progression of COPD. - A nicotine patch was prescribed to aid with smoking cessation. - Screening Labs: An order for comprehensive blood work was placed for his harini al physical in six months, to be drawn one week prior. This includes a complete blood count, electrolytes, glucose, screening for hepatitis, HIV, and syphilis, vitamin D, thyroid levels, and urine protein. - Follow-up: A follow-up appointment is scheduled in six months for an annual physical and to review lab results. Patient was informed and verbally consented to the use of an ambient scribe for clinic note documentation during this visit. Plan I reviewed the patient's current health status and medications. We discussed his recent HbA1c of 6.7%, noting that while it has increased slightly from 6.4%, it remains within a good target range. A significant portion of our discussion focused on the critical need for him to stop smoking. I explained that while his COPD is not currently severe enough to require oxygen, continued smoking will cause irreversible lung damage and will inevitably lead to him needing supplemental oxygen and increase his risk of hospitalization. To support his quitting efforts, I informed him I would prescribe a nicotine patch. I also informed him that his albuterol inhaler would be refilled. We planned for an annual physical in six months, preceded by a comprehensive blood draw one week before the appointment. I confirmed with him that the lab order was sent electronically and instructed him to schedule his follow-up appointment at the front office secretary. Orders: Orders TSH reflex Free T4 6 Months Z00.00 - Encounter for general adult medical examination without abnormal findings Microalbumin, Random (w Creat) 6 Months Z00.00 - Encounter for general adult medical examination without abnormal findings Lipid Panel 6 Months Z00.00 - Encounter for general adult medical examination without abnormal findings Hepatitis A,B,C Profile 6 Months Z00.00 - Encounter for general adult medical examination without abnormal findings Comprehensive Met. Panel 6 Months Z00.00 - Encounter for general adult medical examination without abnormal findings Hemoglobin A1c POC Today E11.9 - Type 2 diabetes mellitus without complications Vitamin D 25-OH Total 6 Months Z00.00 - Encounter for general adult medical examination without abnormal findings Syphilis Screen 6 Months Z00.00 - Encounter for general adult medical examinati on without abnormal findings HIV Ab/Ag 6 Months Z00.00 - Encounter for general adult medical examination without abnormal findings Hemoglobin A1c 6 Months Z00.00 - Encounter for general adult medical examination without abnormal findings Complete Blood Count Auto Diff 6 Months Z00.00 - Encounter for general adult medical examination without abnormal findings Medications: New albuterol sulfate 90 mcg/actuation (Ventolin HFA) 2 puffs inhalation QID PRN 8.5 grams 5RF shortness of breath or wheezing nicotine apply 1-21 mg NICOTINE PATCH daily for 28 days; follow with 1-14 mg PATCH daily for 14 days, then 1-7mg PATCH daily for 14 days transdermal 56 patches 0RF Discontinued ProAir HFA 90 mcg/actuation (albuterol sulfate) Discontinued Reason: Doctor's Order 2 puffs inhalation Q4-6H PRN 8.5 grams 1RF for wheezing NS Patient Instructions: - It is very important that you stop smoking. Continuing to smoke will cause permanent lung damage and make your breathing problems worse, likely leading to a need for oxygen. - I have sent a prescription for a nicotine patch to your pharmacy to help you quit. It delivers decreasing doses of nicotine to ease you off it. - I have also sent a refill for your albuterol inhaler (the blue as-needed inhaler). - Continue to take all of your other medications as prescribed. - Please go to the lab to get your blood work done one week before your next appointment in six months. The order has already been sent, so you do not need a ny paperwork. - Please schedule your next appointment for six months from now at the front office secretary before you leave.
[2025-03-23 09:59] VITALS: BP 132/84; PULSE 110; RESP 16; TEMP 36.1; O2SAT 95; BMI 25.9
== END 2025-03-23 10:20 | disposition home or self-care (01) ==
PROVIDERS: Visit Provider Student in an Organized Health Care Education/Training Program
DX: J43.9 Emphysema, unspecified (principal); E11.9 Type 2 diabetes mellitus without complications; F17.200 Nicotine dependence, unspecified, uncomplicated; G45.9 Transient cerebral ischemic attack, unspecified; C61 Malignant neoplasm of prostate; Z19.1 Hormone sensitive malignancy status; E78.2 Mixed hyperlipidemia; K21.9 Gastro-esophageal reflux disease without esophagitis; J30.2 Other seasonal allergic rhinitis